=== PATIENT | female | born 1960 | race Caucasian/White ===

== ENCOUNTER 2017-04-03 19:07 | Emergency (ER) | payer BC ==
[~2017-04-03] VITALS: Ht 162.6 cm; Wt 55.3 kg
[~2017-04-03 19:07] MED LIST: CEPH500C3 PO; REST0.05 EACH EYE
[2017-04-03 19:40] VITALS: BP 163/88; PULSE 98; RESP 18; TEMP 97.4; O2SAT 99
== END 2017-04-03 23:31 | disposition left against medical advice (07) ==
LOC: PHED 19:07
DX: Z53.9 Procedure and treatment not carried out, unspecified reason (principal)
CPT/HCPCS: 99281